=== PATIENT | female | born 1955 | race Caucasian/White ===

== ENCOUNTER 2023-01-10 13:01 | Emergency (ER) | payer OTHER, SELFPAY ==
[2023-01-10] VITALS (16 sets, daily range): BP systolic 110–150; BP diastolic 70–105; PULSE 73–107; RESP 11–29; TEMP 37.2; O2SAT 93–100; BMI 26.4
--- NOTE | 2023-01-10 13:17 | DI.RAD.S_ITS ---
PROCEDURE: XR CHEST 1V INDICATIONS: chest pain TECHNIQUE: One view of the chest was acquired. COMPARISON: None. FINDINGS: Surgical changes and devices: None. Lungs and pleura: Lungs are clear. No pleural effusions or pneumothorax. Mediastinum: Mediastinal contours appear normal. Heart size is normal. Bones and chest wall: No suspicious bony lesions. Overlying soft tissues appear unremarkable. Mild levoconvex curvature of the thoracic spine. IMPRESSION: No acute cardiopulmonary abnormality. Approved by: Balta Skinner M.D. on 01/10/2023 at 14:49
--- NOTE | 2023-01-10 13:17 | DI.RAD.S_ITS ---
PROCEDURE: XR SHOULDER LT MIN 2V INDICATIONS: headache, fall TECHNIQUE: 2 views of the shoulder were acquired. COMPARISON: None. FINDINGS: Bones: Generalized osteopenia. No acute fractures or dislocations. No suspicious bony lesions. Visualized ribs appear intact. Soft tissues: No suspicious soft tissue calcifications. IMPRESSION: No acute osseous abnormality. If clinical suspicion and/or symptoms persist, additional imaging with repeat plain films, or advanced imaging (e.g. CT, MRI) may be helpful for further assessment. Approved by: Balta Skinner M.D. on 01/10/2023 at 14:50
--- NOTE | 2023-01-10 13:17 | DI.CT.S_ITS ---
PROCEDURE: CT HEAD/BRAIN WO CON INDICATIONS: headache, fall TECHNIQUE: Noncontrast 4.5 mm thick angled axial sections acquired from the foramen magnum to the vertex, with coronal and sagittal reformats. For radiation dose reduction, the following was used: automated exposure control, adjustment of mA and/or kV according to patient size. COMPARISON: None. FINDINGS: Image quality: Excellent. CSF spaces: Basal cisterns are patent. No extra-axial fluid collections. The ventricles are symmetric in size and shape. Brain: No intracranial bleeds or masses. There is minimal cerebral volume loss for age, with resultant ventricular and sulcal prominence. There are minimal periventricular and deep white matter chronic small vessel ischemic changes. There is intracranial internal carotid artery atherosclerosis. Skull and face: Calvarium and visualized facial bones appear intact, without suspicious lesions. Sinuses: Visualized sinuses and mastoids are clear. IMPRESSION: No acute intracranial abnormality. Approved by: Balta Skinner M.D. on 01/10/2023 at 14:26
--- NOTE | 2023-01-10 13:24 | ED.FALL ---
HPI - Fall General Chief Complaint: Fall Stated Complaint: Headache, L arm pain after fall, LOC after fall Time Seen by Provider: 01/10/23 13:09 Mode of arrival: Family Vehicle History of Present Illness HPI Narrative: Patient is a 67-year-old female history of hypertension alcohol abuse but sober now for 7 months presents today after having an episode of confusion yesterday. She reports she woke up in her normal state of health she was having a normal day suddenly woke up on her couch. She reports that she had blurry vision but realized that her glasses will over by the computer she does not remember how she got from the computer to the couch without her glasses. She has chronic left shoulder pain however her shoulder is maybe more tender and she feels like her left arm is bit more weak. She previously had a broken left wrist and has difficulty with her left finger she had trouble buttoning her pants today which she normally does not. She denies any nausea vomiting or worsening headache. No chest pain palpitations or other symptoms Related Data Home Medications Medication Instructions Recorded Confirmed [SYNTHROID] Q DAY ##0 04/18/13 Allergies Allergy/AdvReac Type Severity Reaction Status Date / Time No Known Allergies Allergy Uncoded 01/10/23 13:17 Review of Systems Review of Systems ROS Unobtainable: All systems reviewed & are unremarkable except as noted in HPI and below Patient History Social History Smoking Status: Former smoker Smoking Status: Former smoker Substance Use Type: does not use Exam Initial Vital Signs Initial Vital Signs: Vital Signs Temperature 98.9 F 01/10/23 13:10 Pulse Rate 107 H 01/10/23 13:10 Respiratory Rate 16 01/10/23 13:10 Blood Pressure 144/84 H 01/10/23 13:10 Pulse Oximetry 98 01/10/23 13:10 Oxygen Delivery Method Room Air 01/10/23 13:10 GENERAL: Alert 67-year-old and in no acute distress. HEENT: Head atraumatic,EOMI, pupils reactive, face symmetric, moist mucous membranes CARDIOVASCULAR: Regular rate and rhythm without murmurs, rubs or gallops. RESPIRATORY: Breath sounds equal bilaterally, no wheezes rales or rhonchi. ABDOMEN: Soft, nontender. Normoactive bowel sounds all 4 quadrants. No guarding or rebound. EXTREMITIES: Normal range of motion, no clubbing or edema. Neurovascularly intact NEUROLOGICAL: Alert and oriented x4.Normal gait and speech. Cranial nerves II through XII grossly intact. Good [id number], good yril-gy-puvg, strength equal bilaterally, no dysarthria or aphasia, sensation in tact to soft touch bilaterally, no visual changes, no facial droop department head strength is slightly weaker in the left than the right, due to shoulder pain on the left unable to hold left arm SKIN: Warm, dry, no laceration, no petechiae, no rashes or lesions. Course Orders Ordered: Discontinued Medications Aspirin (Aspirin 81 Mg Chew Tab) 324 mg PO NOW ONE Stop: 01/10/23 13:18 Last Admin: 01/10/23 14:11 Dose: 324 mg Documented By: AT Vital Signs Vital signs: Vital Signs - 8 hr 01/10/23 13:10 01/10/23 13:14 01/10/23 13:15 Temperature 98.9 F Pulse Rate 107 H 96 H 95 H Respiratory Rate 16 16 17 Blood Pressure 144/84 H Pulse Oximetry 98 99 99 Oxygen Delivery Method Room Air 01/10/23 13:30 01/10/23 13:30 01/10/23 14:10 Temperature Pulse Rate 94 H 85 Respiratory Rate 18 11 L Blood Pressure 147/105 H Pulse Oximetry 100 96 Oxygen Delivery Method Room Air 01/10/23 14:10 01/10/23 14:15 01/10/23 14:30 Temperature Pulse Rate 90 Respiratory Rate 16 Blood Pressure 130/71 120/73 Pulse Oximetry 96 Oxygen Delivery Method 01/10/23 14:30 01/10/23 14:45 01/10/23 15:00 Temperature Pulse Rate 76 83 Respiratory Rate 20 22 Blood Pressure 126/71 Pulse Oximetry 99 93 Oxygen Delivery Method 01/10/23 15:00 01/10/23 15:15 01/10/23 15:30 Temperature Pulse Rate 86 82 Respiratory Rate 22 28 H Blood Pressure 110/70 Pulse Oximetry 97 98 Oxygen Delivery Method Room Air 01/10/23 15:30 01/10/23 15:45 01/10/23 16:24 Temperature Pulse Rate 81 80 74 Respiratory Rate 19 29 H 12 Blood Pressure Pulse Oximetry 98 98 99 Oxygen Delivery Method Room Air 01/10/23 16:24 01/10/23 16:30 01/10/23 16:30 Temperature Pulse Rate 78 Respiratory Rate 13 Blood Pressure 150/76 H 133/71 Pulse Oximetry 99 Oxygen Delivery Method Room Air 01/10/23 16:45 01/10/23 17:00 01/10/23 17:00 Temperature Pulse Rate 73 83 Respiratory Rate 21 24 Blood Pressure 136/75 Pulse Oximetry 97 99 Oxygen Delivery Method Room Air MDM - Fall Lab Data 01/10/23 13:23 01/10/23 13:23 Labs: Lab Results 01/10/23 01/10/23 01/10/23 Range/Units 13:23 13: 13:23 WBC 7.7 (4.5-11.0) X10^3/uL RBC 4.35 (4.0-5.2) X10^6/uL Hgb 13.7 (12.0-16.0) g/dL Hct 39.7 (36-46) % MCV 91.1 (80-100) fL MCH 31.5 (26-34) PG MCHC 34.6 (30-36) % RDW 12.8 (11.6-14.8) % Plt Count 228 (150-400) X10^3/uL Neut % (Auto) 73.0 (50-75) % Lymph % (Auto) 19.4 L (25-40) % [place] % (Auto) 6.0 (3-14) % Eos % (Auto) 0.6 L (2-4) % Baso % (Auto) 1.0 (0-2) % Neut # (Auto) 5600 (4225-5182) /uL Lymph # (Auto) 1500 (2440-6469) /uL Bradford # (Auto) 500 (0-900) /uL Eos # (Auto) 0 (0-450) /uL Baso # (Auto) 100 (0-100) /uL PT 12.6 (10.1-12.7) SECONDS INR 1.1 (0.9-1.3) APTT 28 (26-36) SECONDS Sodium 139 (137-145) mmol/L Potassium 3.8 (3.4-5.1) mmol/L Chloride 104 (98-107) mmol/L Carbon Dioxide 26 (22-32) mmol/L BUN 9 (7-17) mg/dL Creatinine 0.75 (0.52-1.04) mg/dL Estimated GFR > 60 (>60) mL/min BUN/Creatinine Ratio 12.0 (6-22) Glucose 143 H (80-110) mg/dL Calcium 9.1 (8.4-10.2) mg/dL Magnesium 2.2 (1.6-2.3) mg/dL Total Bilirubin 0.9 (0.2-1.3) mg/dL AST 22 (14-36) IU/L ALT 23 (<35) IU/L Alkaline Phosphatase 79 (38-126) U/L Total Creatine Kinase 291 H (30-135) U/L CK-MB (CK-2) 0.67 (<2.37) ng/mL CK-MB (CK-2) Rel Index 0.2 L (1.5-5.0) % Troponin I 0.015 (0.01-0.034) ng/mL Total Protein 6.9 (6.3-8.2) g/dL Albumin 4.0 (3.5-5.0) g/dL Globulin 2.9 (1.7-4.1) g/dL Albumin/Globulin Ratio 1.4 (1.0-2.8) Lipase 36 (23-300) U/L Salicylates (<20) mg/dL U Opiates 300ng/mL cut (Negative) Ur Oxycodone Screen (Negative) Urine Methadone Screen (Negative) Acetaminophen (10-30) ug/mL Ur Barbiturates Screen (Negative) U Tricyclic Antidepress (Negative) Ur Phencyclidine Scrn (Negative) Ur Amphetamines Screen (Negative) U Methamphetamines Scrn (Negative) Ur MDMA Scrn (Ecstasy) (Negative) U Benzodiazepines Scrn (Negative) Urine Cocaine Screen (Negative) U Marijuana (THC) Screen (Negative) Ethyl Alcohol ( - 10) mg/dL 01/10/23 01/10/23 Range/Units 13:23 14:08 WBC (4.5-11.0) X10^3/uL RBC (4.0-5.2) X10^6/uL Hgb (12.0-16.0) g/dL Hct (36-46) % MCV (80-100) fL MCH (26-34) PG MCHC (30-36) % RDW (11.6-14.8) % Plt Count (150-400) X10^3/uL Neut % (Auto) (50-75) % Lymph % (Auto) (25-40) % Bradford % (Auto) (3-14) % Eos % (Auto) (2-4) % Baso % (Auto) (0-2) % Neut # (Auto) (6565-8459) /uL Lymph # (Auto) (4527-0158) /uL Bradford # (Auto) (0-900) /uL Eos # (Auto) (0-450) /uL Baso # (Auto) (0-100) /uL PT (10.1-12.7) SECONDS INR (0.9-1.3) APTT (26-36) SECONDS Sodium (137-145) mmol/L Potassium (3.4-5.1) mmol/L Chloride (98-107) mmol/L Carbon Dioxide (22-32) mmol/L BUN (7-17) mg/dL Creatinine (0.52-1.04) mg/dL Estimated GFR (>60) mL/min BUN/Creatinine Ratio (6-22) Glucose (80-110) mg/dL Calcium (8.4-10.2) mg/dL Magnesium (1.6-2.3) mg/dL Total Bilirubin (0.2-1.3) mg/dL AST (14-36) IU/L ALT (<35) IU/L Alkaline Phosphatase (38-126) U/L Total Creatine Kinase (30-135) U/L CK-MB (CK-2) (<2.37) ng/mL CK-MB (CK-2) Rel Index (1.5-5.0) % Troponin I (0.01-0.034) ng/mL Total Protein (6.3-8.2) g/dL Albumin (3.5-5.0) g/dL Globulin (1.7-4.1) g/dL Albumin/Globulin Ratio (1.0-2.8) Lipase (23-300) U/L Salicylates < 1.0 (<20) mg/dL U Opiates 300ng/mL cut Negative (Negative) Ur Oxycodone Screen Negative (Negative) Urine Methadone Screen Negative (Negative) Acetaminophen < 10 (10-30) ug/mL Ur Barbiturates Screen Negative (Negative) U Tricyclic Antidepress Negative (Negative) Ur Phencyclidine Scrn Negative (Negative) Ur Amphetamines Screen Negative (Negative) U Methamphetamines Scrn Negative (Negative) Ur MDMA Scrn (Ecstasy) Negative (Negative) U Benzodiazepines Scrn Negative (Negative) Urine Cocaine Screen Negative (Negative) U Marijuana (THC) Screen Negative (Negative) Ethyl Alcohol < 10 ( - 10) mg/dL Imaging Data CT scan - head: Radiologist's Impression: PROCEDURE:? CT HEAD/BRAIN WO CON ? INDICATIONS:? headache, fall ? TECHNIQUE:? Noncontrast 4.5 mm thick angled axial sections acquired from the foramen magnum to the vertex, with coronal and sagittal reformats.? For radiation dose reduction, the following was used:? automated exposure control, adjustment of mA and/or kV according to patient size.? ? COMPARISON:? None. ? FINDINGS:? Image quality:? Excellent.? ? CSF spaces:? Basal cisterns are patent.? No extra-axial fluid collections.? The ventricles are symmetric in size and shape.? ? Brain:? No intracranial bleeds or masses.? There is minimal cerebral volume loss for age, with resultant ventricular and sulcal prominence.? There are minimal periventricular and deep white matter chronic small vessel ischemic changes.? There is intracranial internal carotid artery atherosclerosis.? ? Skull and face:? Calvarium and visualized facial bones appear intact, without suspicious lesions.? ? Sinuses:? Visualized sinuses and mastoids are clear.? ? IMPRESSION:? No acute intracranial abnormality. ? ? ? Approved by: Balta Skinner M.D. on 01/10/2023 at 14:26? CTA - brain/neck: Radiologist's Impression: PROCEDURE:? CT ANGIO HEAD AND NECK ? INDICATIONS:? left weakness yesterday ? TECHNIQUE:? After the administration of intravenous contrast, 1 mm thick sections acquired from the aortic arch through the [place] of [place].? Post-contrast 4.5 mm thick sections then re-acquired from the foramen magnum to the vertex.? 3-dimensional ocamscr-ggkjswmty-ffpcvlftum (MIP) and/or volume rendering reformats were acquired of the central intracranial vasculature and neck separately. For radiation dose reduction, the following was used:? automated exposure control, adjustment of mA and/or kV according to patient size.? ? COMPARISON:? None. ? FINDINGS:? Image quality:? Excellent.? ? BRAIN:? CSF spaces:? Ventricles are normal in size and shape.? Basal cisterns are patent.? No extra-axial fluid collections.? ? Brain:? No midline shift.? No acute intracranial hemorrhage or mass effect.? Baez-white matter interface appears intact.? ? Skull and face:? Calvarium and facial bones appear intact, without suspicious lesions.? Orbits appear normal.? ? Sinuses:? Sinuses and mastoids are clear.? ? HEAD CT ANGIOGRAPHY:? Anterior circulation:? Intracranial internal carotid arteries demonstrate mild atherosclerotic calcifications without significant stenosis.? The flow within the paired anterior cerebral arteries is normal and symmetric.? The flow within the middle cerebral arteries is normal and symmetric.? The anterior communicating artery is seen.? No aneurysms are seen.? ? Posterior circulation:? Visualized portions of the vertebral arteries demonstrate normal caliber, and join to form a normal appearing basilar artery.? Flow within the posterior cerebral arteries is normal and symmetric.? No aneurysms are seen.? ? NECK CT ANGIOGRAPHY:? Carotid system:? The great vessels demonstrate a conventional anatomy as they arise from the aortic arch.? The origins of the common carotid arteries appear patent.? The common carotid arteries demonstrate normal caliber and courses.? The bifurcation regions are both widely patent.? The internal carotid arteries demonstrate normal calibers and mildly tortuous courses.? ? Posterior circulation:? The origins of the vertebral arteries both appear widely patent.? The more superior extracranial portions of both vertebral arteries also demonstrate normal courses and calibers.? They join to form a normal appearing basilar artery.? ? Soft tissues:? Visualized neck soft tissues demonstrate no suspicious abnormalities.? ? Bones:? No suspicious bony lesions.? Moderate degenerative changes are seen in the spine. ? ? IMPRESSION:? No acute intracranial abnormality.? No hemodynamically significant arterial stenosis or occlusion in the major arteries of the head and neck. ? Any quantitative measurements of stenosis were performed using NASCET criteria.? Approved by: Balta Skinner M.D. on 01/10/2023 at 14:29? Chest x-ray: Radiologist's Impression: PROCEDURE:? XR CHEST 1V ? INDICATIONS:? chest pain ? TECHNIQUE:? One view of the chest was acquired.? ? COMPARISON:? None. ? FINDINGS:? ? Surgical changes and devices:? None.? ? Lungs and pleura:? Lungs are clear.? No pleural effusions or pneumothorax.? ? Mediastinum:? Mediastinal contours appear normal.? Heart size is normal.? ? Bones and chest wall:? No suspicious bony lesions.? Overlying soft tissues appear unremarkable.? Mild levoconvex curvature of the thoracic spine. ? IMPRESSION:? No acute cardiopulmonary abnormality. ? ? Approved by: Balta Skinner M.D. on 01/10/2023 at 14:49? Extremity x-ray #1: Radiologist's Impression: PROCEDURE:? XR SHOULDER LT MIN 2V ? INDICATIONS:? headache, fall ? TECHNIQUE:? 2 views of the shoulder were acquired.? ? COMPARISON:? None. ? FINDINGS:? ? Bones:? Generalized osteopenia.? No acute fractures or dislocations.? No suspicious bony lesions.? Visualized ribs appear intact.? ? Soft tissues:? No suspicious soft tissue calcifications.? ? IMPRESSION:? No acute osseous abnormality.? If clinical suspicion and/or symptoms persist, additional imaging with repeat plain films, or advanced imaging (e.g. CT, MRI) may be helpful for further assessment. ? ? ? Approved by: Balta Skinner M.D. on 01/10/2023 at 14:50? MR brain: Radiologist's Impression: PROCEDURE:? MR HEAD/BRAIN WO CON ? INDICATIONS:? confusion, left arm weakness ? TECHNIQUE:? Non-contrast axial T1 spin echo, axial T2 fast spin echo, sagittal and axial FLAIR, coronal T2 fast spin echo, axial gradient echo, axial diffusion and ADC through the brain.? ? COMPARISON:? [facility], CT, CT ANGIO HEAD AND NECK, 01/10/2023, 13:40.? [facility], CT, CT HEAD/BRAIN WO CON, 01/10/2023, 13:35. ? FINDINGS:? Image quality:? This examination is limited by involuntary motion artifact.? ? CSF spaces:? Ventricles appear symmetric in size and shape.? Basal cisterns are patent.? No extra-axial fluid collections.? ? Brain:? No intracranial bleeds or mass effects.? There is cerebral volume loss for age.? There are periventricular and deep white matter chronic small vessel ischemic changes.? Brainstem appears normal.? Diffusion-weighted images show no acute ischemic insults.? No chronic ischemic insults.? Normal intravascular flow voids are present.? ? Skull and face:? Calvarial bone marrow is normal in signal.? Orbits are normal.? ? Sinuses:? Sinuses and mastoids are clear.? ? ? IMPRESSION:? Motion limited study demonstrating no findings of acute or subacute infarction. ? ? Dictated by: Otis Hudson M.D. on 01/10/2023 at 15:37 ? ? ECG Data Interpretation: Normal sinus rhythm rate 89 DE interval 152 QRS [address] changes no T-wave inversions mild artifact noted MDM Narrative Medical decision making narrative: Patient is 67-year-old female history of alcohol abuse but has been sober for the past couple of months presenting today with an episode of confusion. And now is having increased difficulty with her left arm. His difficult to tell if she is having actual shoulder pain she is able to flex extend and bend her elbow and wrist but unable to get her actual shoulder up. She has no numbness tingling or weakness. Head CT CT angio are both negative for intracranial abnormality. Shoulder x-ray does not show any obvious abnormality either. Blood work is reassuring, no electrolyte abnormality no EMIGDIO glucose, I can not explain what happened yesterday possible seizure possible TIA MRI today is negative. I really think that her shoulder is shoulder issue it has been ongoing for awhile she is able to move lower part of her arm, which is not consistent with a CVA. No evidence of substance abuse today. Discharge Plan Departure Patient Disposition: Home Clinical Impression: Acute shoulder pain Instructions: DI for Shoulder Pain Activity Restrictions/Additional Instructions: *You have been diagnosed with shoulder pain *What to do: At this time I do not have any explanation for what happened to yesterday. You had full workup in the emergency department. No evidence of stroke today no sign of infection *Continue to take medications as directed Tylenol or Motrin as needed pain *Follow up with your primary care provider in 2-3 days or call [phone] *Return to ER if you should have increasing pain weakness confusion numbness tingling or any new, worsening or concerning symptoms Prescriptions: No Action [SYNTHROID] Q DAY Qty: 0 Stand Alone Forms: Patient Portal/API
[2023-01-10 13:32] LABS: Add Manual Diff / Slide Review NO; Basophils Absolute Auto 100 /uL (0-100); Eosinophils Absolute Auto 0 /uL (0-450); Eosinophils Percent Auto 0.6 % (2-4); Hematocrit 39.7 % (36-46); Hemoglobin 13.7 g/dL (12.0-16.0); Lymphocytes Absolute Auto 1500 /uL (1100-4500); Lymphocytes Percent Auto 19.4 % (25-40); Mean Corpuscular HGB Conc 34.6 % (30-36); Mean Corpuscular Hemoglobin 31.5 PG (26-34); Mean Corpuscular Volume 91.1 fL (80-100); Monocytes Absolute Auto 500 /uL (0-900); Neutrophils Absolute Auto 5600 /uL (1500-7000); Platelet Count 228 X10^3/uL (150-400); Red Blood Cell Count 4.35 X10^6/uL (4.0-5.2); Red Cell Distribution Width 12.8 % (11.6-14.8); White Blood Cell Count 7.7 X10^3/uL (4.5-11.0)
--- NOTE | 2023-01-10 13:35 | DI.CT.S_ITS ---
PROCEDURE: CT ANGIO HEAD AND NECK INDICATIONS: left weakness yesterday TECHNIQUE: After the administration of intravenous contrast, 1 mm thick sections acquired from the aortic arch through the [place] of [place]. Post-contrast 4.5 mm thick sections then re-acquired from the foramen magnum to the vertex. 3-dimensional kjvyamo-ffirpqcfi-nalezprgfx (MIP) and/or volume rendering reformats were acquired of the central intracranial vasculature and neck separately. For radiation dose reduction, the following was used: automated exposure control, adjustment of mA and/or kV according to patient size. COMPARISON: None. FINDINGS: Image quality: Excellent. BRAIN: CSF spaces: Ventricles are normal in size and shape. Basal cisterns are patent. No extra-axial fluid collections. Brain: No midline shift. No acute intracranial hemorrhage or mass effect. Baez-white matter interface appears intact. Skull and face: Calvarium and facial bones appear intact, without suspicious lesions. Orbits appear normal. Sinuses: Sinuses and mastoids are clear. HEAD CT ANGIOGRAPHY: Anterior circulation: Intracranial internal carotid arteries demonstrate mild atherosclerotic calcifications without significant stenosis. The flow within the paired anterior cerebral arteries is normal and symmetric. The flow within the middle cerebral arteries is normal and symmetric. The anterior communicating artery is seen. No aneurysms are seen. Posterior circulation: Visualized portions of the vertebral arteries demonstrate normal caliber, and join to form a normal appearing basilar artery. Flow within the posterior cerebral arteries is normal and symmetric. No aneurysms are seen. NECK CT ANGIOGRAPHY: Carotid system: The great vessels demonstrate a conventional anatomy as they arise from the aortic arch. The origins of the common carotid arteries appear patent. The common carotid arteries demonstrate normal caliber and courses. The bifurcation regions are both widely patent. The internal carotid arteries demonstrate normal calibers and mildly tortuous courses. Posterior circulation: The origins of the vertebral arteries both appear widely patent. The more superior extracranial portions of both vertebral arteries also demonstrate normal courses and calibers. They join to form a normal appearing basilar artery. Soft tissues: Visualized neck soft tissues demonstrate no suspicious abnormalities. Bones: No suspicious bony lesions. Moderate degenerative changes are seen in the spine. IMPRESSION: No acute intracranial abnormality. No hemodynamically significant arterial stenosis or occlusion in the major arteries of the head and neck. Any quantitative measurements of stenosis were performed using NASCET criteria. Approved by: Balta Skinner M.D. on 01/10/2023 at 14:29
[2023-01-10 13:37] LABS: INR 1.1 (0.9-1.3); Prothrombin Time 12.6 SECONDS (10.1-12.7)
[2023-01-10 13:40] LABS: PTT Partial Thromboplastin Tim 28 SECONDS (26-36)
[2023-01-10 13:46] LABS: Acetaminophen < 10 ug/mL (10-30); Alanine Aminotransferase 23 IU/L (<35); Albumin Globulin Ratio 1.4 (1.0-2.8); Alkaline Phosphatase 79 U/L (38-126); Aspartate Aminotransferase 22 IU/L (14-36); Bilirubin Total 0.9 mg/dL (0.2-1.3); Blood Urea Nitrogen 9 mg/dL (7-17); Calcium 9.1 mg/dL (8.4-10.2); Carbon Dioxide 26 mmol/L (22-32); Chloride 104 mmol/L (98-107); Creatine Kinase 291 U/L (30-135); Estimated Glomerular Filt Rate > 60 mL/min (>60); Ethanol (ETOH) < 10 mg/dL; Globulin 2.9 g/dL (1.7-4.1); Glucose 143 mg/dL (80-110); HEMOLYSIS < 15 (0-50); Lipase 36 U/L (23-300); Magnesium 2.2 mg/dL (1.6-2.3); Potassium 3.8 mmol/L (3.4-5.1); Salicylate < 1.0 mg/dL (<20); Sodium 139 mmol/L (137-145); Total Protein 6.9 g/dL (6.3-8.2)
[2023-01-10 13:56] LABS: Troponin I 0.015 ng/mL (0.01-0.034)
[2023-01-10 14:01] LABS: CKMB % Relative Index 0.2 % (1.5-5.0); Creatine Kinase MB 0.67 ng/mL (<2.37)
[2023-01-10] MEDS: ASPIRIN 81 MG CHEW TAB 324 MG PO (14:11)
[2023-01-10 14:16] LABS: UR Morphine/Opiate cutoff 300 Negative (Negative); Ur Creatinine Normal (Normal); Ur Specific Gravity Normal (Normal); Urine Amphetamines Negative (Negative); Urine Barbiturates Negative (Negative); Urine Benzodiazepines Negative (Negative); Urine Cocaine Negative (Negative); Urine MDMA Negative (Negative); Urine Methadone Negative (Negative); Urine Methamphetamines Negative (Negative); Urine Oxycodone Negative (Negative); Urine Phencyclidine Negative (Negative); Urine Tetrahydrocannabinol Negative (Negative); Urine Tricyclic Antidepressant Negative (Negative); Urine pH Normal (Normal)
--- NOTE | 2023-01-10 15:19 | DI.MRI.S_ITS ---
PROCEDURE: MR HEAD/BRAIN WO CON INDICATIONS: confusion, left arm weakness TECHNIQUE: Non-contrast axial T1 spin echo, axial T2 fast spin echo, sagittal and axial FLAIR, coronal T2 fast spin echo, axial gradient echo, axial diffusion and ADC through the brain. COMPARISON: [facility], CT, CT ANGIO HEAD AND NECK, 01/10/2023, 13:40. [facility], CT, CT HEAD/BRAIN WO CON, 01/10/2023, 13:35. FINDINGS: Image quality: This examination is limited by involuntary motion artifact. CSF spaces: Ventricles appear symmetric in size and shape. Basal cisterns are patent. No extra-axial fluid collections. Brain: No intracranial bleeds or mass effects. There is cerebral volume loss for age. There are periventricular and deep white matter chronic small vessel ischemic changes. Brainstem appears normal. Diffusion-weighted images show no acute ischemic insults. No chronic ischemic insults. Normal intravascular flow voids are present. Skull and face: Calvarial bone marrow is normal in signal. Orbits are normal. Sinuses: Sinuses and mastoids are clear. IMPRESSION: Motion limited study demonstrating no findings of acute or subacute infarction. Dictated by: Otis Hudson M.D. on 01/10/2023 at 15:37 Approved by: Otis Hudson M.D. on 01/10/2023 at 15:38
== END 2023-01-10 17:16 | disposition home or self-care (01) ==
PROVIDERS: Emergency Provider Emergency Medicine
DX: M25.512 Pain in left shoulder (principal); R41.0 Disorientation, unspecified; R07.9 Chest pain, unspecified; H53.8 Other visual disturbances; W19.XXXA Unspecified fall, initial encounter
CPT/HCPCS: 36415; 70450; 70496; 70498; 70551; 71045; 73030; 80053; 80305; 80320; 80329; 82550; 82553; 83690; 83735; 84484; 85025; 85610; 85730; 93005; 93010; 99284; 99285; G0480; Q9967

== ENCOUNTER 2023-10-03 22:08 | Emergency (ER) | payer OTHER, SELFPAY ==
[2023-10-03 22:11] VITALS: BP 146/105; PULSE 71; RESP 17; TEMP 37.1; O2SAT 99; BMI 26.9
[2023-10-03 22:46] VITALS: O2SAT 91
[2023-10-03 22:47] VITALS: BP 160/86; PULSE 67; O2SAT 99
[2023-10-03 22:57] LABS: Add Manual Diff / Slide Review NO; Basophils Absolute Auto 100 /uL (0-100); Basophils Percent Auto 0.6 % (0-2); Eosinophils Absolute Auto 100 /uL (0-450); Eosinophils Percent Auto 0.7 % (2-4); Hematocrit 41.9 % (36-46); Hemoglobin 14.3 g/dL (12.0-16.0); Lymphocytes Absolute Auto 1300 /uL (1100-4500); Lymphocytes Percent Auto 14.4 % (25-40); Mean Corpuscular HGB Conc 34.1 % (30-36); Mean Corpuscular Hemoglobin 31.3 PG (26-34); Mean Corpuscular Volume 91.9 fL (80-100); Monocytes Absolute Auto 400 /uL (0-900); Monocytes Percent Auto 4.8 % (3-14); Neutrophils Absolute Auto 7100 /uL (1500-7000); Neutrophils Percent Auto 79.5 % (50-75); Platelet Count 257 X10^3/uL (150-400); Red Blood Cell Count 4.56 X10^6/uL (4.0-5.2); Red Cell Distribution Width 12.7 % (11.6-14.8); White Blood Cell Count 8.9 X10^3/uL (4.5-11.0)
[2023-10-03 23:00] VITALS: BP 156/85; PULSE 67; O2SAT 99
[2023-10-03 23:04] LABS: Alanine Aminotransferase 19 IU/L (<35); Albumin Globulin Ratio 1.3 (1.0-2.8); Alkaline Phosphatase 95 U/L (38-126); Aspartate Aminotransferase 23 IU/L (14-36); BUN Creatinine Ratio 18.9 (6-22); Bilirubin Total 0.4 mg/dL (0.2-1.3); Blood Urea Nitrogen 14 mg/dL (7-17); Calcium 9.7 mg/dL (8.4-10.2); Carbon Dioxide 26 mmol/L (22-32); Chloride 101 mmol/L (98-107); Estimated Glomerular Filt Rate > 60 mL/min (>60); Glucose 146 mg/dL (80-110); HEMOLYSIS < 15 (0-50); Lipase 66 U/L (23-300); Potassium 4.1 mmol/L (3.4-5.1); Sodium 135 mmol/L (137-145)
[2023-10-03 23:30] VITALS: BP 175/81; PULSE 68; O2SAT 100
[2023-10-04] VITALS: BP 175/85; PULSE 68; O2SAT 100
--- NOTE | 2023-10-04 00:07 | ED.GENADULT ---
HPI - General Adult General Chief complaint: Abdominal Pain Stated complaint: discolored stool/ pain in abd/ t-3 Time Seen by Provider: 10/03/23 22:53 Source: patient Mode of arrival: Ambulatory History of Present Illness HPI narrative: 68-year-old woman with a history of alcohol use disorder who states she is no longer drinking presents with 3 days of very light colored stool and upper abdominal pain. No nausea vomiting or diarrhea. No fevers,cough, chills, palpitations or headaches. She states that her diet has been similar with no significant changes. Related Data Home Medications Medication Instructions Recorded Confirmed [SYNTHROID] Q DAY ##0 04/18/13 Previous Rx's Medication Instructions Recorded omeprazole 40 mg capsule,delayed 40 mg PO DAILY #30 caps 10/04/23 release Allergies Allergy/AdvReac Type Severity Reaction Status Date / Time No Known Drug Allergies Allergy Verified 10/03/23 22:11 Review of Systems Review of Systems Narrative: Pertinent positive and negative findings as per HPI Patient History Social History Smoking Status: Former smoker Smoking Status: Former smoker Substance Use Type: does not use Exam Initial Vital Signs Initial Vital Signs: Vital Signs Temperature 98.7 F 10/03/23 22:11 Pulse Rate 71 10/03/23 22:11 Respiratory Rate 17 10/03/23 22:11 Blood Pressure 146/105 H 10/03/23 22:11 Pulse Oximetry 99 10/03/23 22:11 Oxygen Delivery Method Room Air 10/03/23 22:11 General: Healthy appearing, in no acute distress. Able to give a complete and coherent history. HEENT: Moist mucous membranes, normal sclera with reactive pupils, Respiratory: Lungs are clear to auscultation, no wheezing no rales no rhonchi. Full and symmetrical air movement Cardiac: Regular rate and rhythm no murmurs no bruits Abdomen: Soft, tender across the entire upper abdomen without rebound or guarding, good bowel tones, no flank pain Skin: Warm and dry, no rashes, no jaundice Neurologic: Grossly neurologically intact with no obvious asymmetries or abnormalities Extremities: No trauma, well perfused Psych: Cooperative, appropriate insight and affect Course Orders Ordered: ED Orders 10/03/23 22:16 EKG-12 Lead Stat 10/03/23 22:40 Complete Blood Count AUTO DIFF Stat Comprehensive Metabolic Panel Stat Lipase Stat 10/04/23 00:11 CT abdomen pelvis w con Stat Hydromorphone HCl (Hydromorphone 0.5 Mg Inj) 0.5 mg IV Q15MIN PRN PRN Reason: Pain, Last Admin: 10/04/23 00:39 Dose: 0.5 mg Documented By: EVER Ondansetron HCl (Ondansetron 4 Mg Odt) 4 mg PO NOW PRN PRN Reason: Nausea And Vomiting Ondansetron HCl (Ondansetron 4 Mg/2 Ml Inj) 4 mg IV NOW PRN PRN Reason: Nausea And Vomiting Discontinued Medications Hydromorphone HCl (Hydromorphone 1 Mg Inj) 1 mg IV NOW ONE Stop: 10/04/23 01:27 Last Admin: 10/04/23 01:37 Dose: 1 mg Documented By: DIXON Sodium Chloride (Normal Saline 0.9%) 1,000 mls @ 1,000 mls/hr IV BOLUS ONE Stop: 10/04/23 01:10 Last Infusion: 10/04/23 01:37 Dose: Infused Documented By: Admin: 10/04/23 00:39 Dose: 1,000 mls/hr Documented By: EVER Vital Signs Vital signs: Vital Signs - 8 hr 10/03/23 22:11 10/03/23 22:46 10/03/23 22:47 Temperature 98.7 F Pulse Rate 71 Respiratory Rate 17 Blood Pressure 146/105 H 160/86 H Pulse Oximetry 99 91 Oxygen Delivery Method Room Air 10/03/23 22:47 10/03/23 23:00 10/03/23 23:00 Temperature Pulse Rate 67 67 Respiratory Rate Blood Pressure 156/85 H Pulse Oximetry 99 99 Oxygen Delivery Method 10/03/23 23:30 10/03/23 23:30 10/04/23 00:00 Temperature Pulse Rate 68 68 Respiratory Rate Blood Pressure 175/81 H Pulse Oximetry 100 100 Oxygen Delivery Method 10/04/23 00:00 10/04/23 00:33 10/04/23 00:37 Temperature Pulse Rate 101 H Respiratory Rate Blood Pressure 175/85 H 171/81 H Pulse Oximetry 95 Oxygen Delivery Method 10/04/23 00:37 10/04/23 01:00 10/04/23 01:00 Temperature Pulse Rate 76 71 Respiratory Rate 16 Blood Pressure 173/84 H Pulse Oximetry 99 98 Oxygen Delivery Method 10/04/23 01:30 10/04/23 01:30 10/04/23 02:00 Temperature Pulse Rate 72 73 Respiratory Rate Blood Pressure 172/78 H Pulse Oximetry 97 89 L Oxygen Delivery Method 10/04/23 02:00 Temperature Pulse Rate Respiratory Rate Blood Pressure 155/84 H Pulse Oximetry Oxygen Delivery Method Medical Decision Making Lab Data 10/03/23 22:40 10/03/23 22:40 Labs: Lab Results 10/03/23 Range/Units 22:40 WBC 8.9 (4.5-11.0) X10^3/uL RBC 4.56 (4.0-5.2) X10^6/uL Hgb 14.3 (12.0-16.0) g/dL Hct 41.9 (36-46) % MCV 91.9 (80-100) fL MCH 31.3 (26-34) PG MCHC 34.1 (30-36) % RDW 12.7 (11.6-14.8) % Plt Count 257 (150-400) X10^3/uL Neut % (Auto) 79.5 H (50-75) % Lymph % (Auto) 14.4 L (25-40) % [place] % (Auto) 4.8 (3-14) % Eos % (Auto) 0.7 L (2-4) % Baso % (Auto) 0.6 (0-2) % Neut # (Auto) 7100 H (8132-3089) /uL Lymph # (Auto) 1300 (1373-2832) /uL [place] # (Auto) 400 (0-900) /uL Eos # (Auto) 100 (0-450) /uL Baso # (Auto) 100 (0-100) /uL Sodium 135 L (137-145) mmol/L Potassium 4.1 (3.4-5.1) mmol/L Chloride 101 (98-107) mmol/L Carbon Dioxide 26 (22-32) mmol/L BUN 14 (7-17) mg/dL Creatinine 0.74 (0.52-1.04) mg/dL Estimated GFR > 60 (>60) mL/min BUN/Creatinine Ratio 18.9 (6-22) Glucose 146 H (80-110) mg/dL Calcium 9.7 (8.4-10.2) mg/dL Total Bilirubin 0.4 (0.2-1.3) mg/dL AST 23 (14-36) IU/L ALT 19 (<35) IU/L Alkaline Phosphatase 95 (38-126) U/L Total Protein 7.0 (6.3-8.2) g/dL Albumin 4.0 (3.5-5.0) g/dL Globulin 3.0 (1.7-4.1) g/dL Albumin/Globulin Ratio 1.3 (1.0-2.8) Lipase 66 (23-300) U/L Imaging Data CT scan - abdomen/pelvis: Radiologist's Impression: FINDINGS: Image quality: Excellent. Lung bases: Unremarkable. Heart: No significant findings. ABDOMEN: Liver: Unremarkable. Gallbladder: Unremarkable. Biliary ducts: Unremarkable. Pancreas: Unremarkable. Spleen: Unremarkable. Adrenal Glands: Unremarkable. Kidneys and Ureters: Unremarkable. Stomach and Bowel: Stomach, small bowel loops, and colon are unremarkable. Peritoneum: No abnormal intraperitoneal fluid. No free air. Ventral Wall: No hernias. Abdominal Nodes: No retroperitoneal or mesenteric adenopathy by size criteria. Vessels: Aorta and inferior vena cava are normal in size. PELVIS: Pelvic Organs: Unremarkable. Bladder: Unremarkable. Pelvic Nodes: No enlarged lymph nodes. Miscellaneous: No hernias are seen. Extensive sigmoid diverticulosis is present, and there is no identified area of Suzi diverticular abscess formation. Slight mural thickening is noted along the left lateral border of the sigmoid colon which could represent mild focal acute diverticulitis or scarring from prior diverticulitis. This is best seen on CT series 2, image 66. Bones: Unremarkable. IMPRESSION: Extensive sigmoid diverticulosis without definite acute diverticulitis but there is a focus of either scarring or minimal focal diverticulitis seen at the lateral border of the sigmoid colon. Dictated by: Braulio Boo M.D. on 10/04/2023 at 1:11 MDM Narrative Medical decision making narrative: CC: Upper abdominal pain with change to stool color Complicating co-morbidities: History of alcohol use disorder, states she is no longer drinking Data collected from: patient, partner Medical records reviewed: Prior ER notes dealing with acute shoulder pain. No other records are immediately available. Differential considered: Stone anatomic or neoplastic abnormality that is restricting normal bile outflow, bowel obstruction Exam documented above, pertinent findings include: Relatively unremarkable exam with moderate upper abdominal pain without rebound or guarding. No jaundice Lab Test results independently reviewed as above. Pertinent findings: CBC is unremarkable Chemistries are reassuring. Liver function studies are completely unremarkable with a normal bilirubin. Lipase is within normal limits, suggesting no pancreatitis Imaging studies independently reviewed: CT abdomen is reviewed no obvious abnormalities appreciated to explain her change in stool. Possible developing diverticulitis Treatments: Fluids, hydromorphone, Zofran, Protonix Discussion: 68-year-old woman presents with upper abdominal pain. Labs are reassuring. CT scan does not have any significant findings. The discussion on the CT scan questioning developing diverticulitis does not fit at all clinically. We discussed alternate explanations for why she might be having epigastric and upper abdominal pain. Suggested that she try a month of omeprazole to see if gastritis/developing gastric ulcer baby related to her pain. At this point there is certainly no life-threatening explanation, nothing that requires additional evaluation or hospitalization at this time. Recommended using Tylenol and avoiding ibuprofen or aspirin as this can further upset the gastric lining. Also recommended she follow up with her primary care doctor in suggested that if her pain is not resolving she may need referral to Gastroenterology and possible upper endoscopy. Questions are answered and she is safe for discharge Discharge Plan Departure Patient Disposition: Home Clinical Impression: Change in stool Abdominal pain Qualifiers: Abdominal location: upper abdomen, unspecified Qualified Code(s): R10.10 - Upper abdominal pain, unspecified Instructions: DI for Gastritis Activity Restrictions/Additional Instructions: Thank you for coming in today Your workup today was actually very reassuring. I do not have a full explanation for the pain that you are experiencing in your upper abdomen but I can tell you there is not a surgical emergency, your gallbladder, liver and pancreas all look healthy. I am not seeing any evidence of cancer or other infections in the upper part of your belly. I am going to suggest an acid reducing medication for a month. Sometimes this type of pain can be from the lining of your stomach. Using an acid reducing medication allows the lining of your stomach to repair itself. During this time I would recommend Tylenol as the only medication for pain control. Ibuprofen, alleve, Motrin, aspirin, Excedrin all have components that can further irritate the lining of your stomach. I would recommend that you follow-up with your primary care doctor. If you continue to have this pain the next step may be referral to a materials management manager and consideration of an upper endoscopy to look at the lining of your stomach. If you find that you are getting worse or develop any new symptoms, please feel free to return to the emergency department for further evaluation. Prescriptions: New omeprazole 40 mg capsule,delayed release(DR/EC) 40 mg PO DAILY Qty: 30 0RF No Action [SYNTHROID] Q DAY Qty: 0 Referrals: Bertha Bustamante PA-C [Primary Care Provider] - Stand Alone Forms: Patient Portal/API
--- NOTE | 2023-10-04 00:11 | DI.CT.S_ITS ---
PROCEDURE: CT ABDOMEN PELVIS W CON INDICATIONS: upper abdominal pain and pale stool TECHNIQUE: After the administration of intravenous contrast, axial sections acquired from the lung bases to the pubic symphysis. Coronal and sagittal reformats were performed. For radiation dose reduction, the following was used: automated exposure control, adjustment of mA and/or kV according to patient size. COMPARISON: None. FINDINGS: Image quality: Excellent. Lung bases: Unremarkable. Heart: No significant findings. ABDOMEN: Liver: Unremarkable. Gallbladder: Unremarkable. Biliary ducts: Unremarkable. Pancreas: Unremarkable. Spleen: Unremarkable. Adrenal Glands: Unremarkable. Kidneys and Ureters: Unremarkable. Stomach and Bowel: Stomach, small bowel loops, and colon are unremarkable. Peritoneum: No abnormal intraperitoneal fluid. No free air. Ventral Wall: No hernias. Abdominal Nodes: No retroperitoneal or mesenteric adenopathy by size criteria. Vessels: Aorta and inferior vena cava are normal in size. PELVIS: Pelvic Organs: Unremarkable. Bladder: Unremarkable. Pelvic Nodes: No enlarged lymph nodes. Miscellaneous: No hernias are seen. Extensive sigmoid diverticulosis is present, and there is no identified area of Suzi diverticular abscess formation. Slight mural thickening is noted along the left lateral border of the sigmoid colon which could represent mild focal acute diverticulitis or scarring from prior diverticulitis. This is best seen on CT series 2, image 66. Bones: Unremarkable. IMPRESSION: Extensive sigmoid diverticulosis without definite acute diverticulitis but there is a focus of either scarring or minimal focal diverticulitis seen at the lateral border of the sigmoid colon. Dictated by: Braulio Boo M.D. on 10/04/2023 at 1:11 Approved by: Braulio Boo M.D. on 10/04/2023 at 1:14
[2023-10-04 00:33] VITALS: PULSE 101; O2SAT 95
[2023-10-04 00:37] VITALS: BP 171/81; PULSE 76; O2SAT 99
[2023-10-04] MEDS: HYDROMORPHONE 0.5 MG INJ IV (00:39)
[2023-10-04] MEDS: SODIUM CHLORIDE 0.9% 1,000 ML 1000 ML IV (00:39)
[2023-10-04 01:00] VITALS: BP 173/84; PULSE 71; RESP 16; O2SAT 98
[2023-10-04 01:30] VITALS: BP 172/78; PULSE 72; O2SAT 97
[2023-10-04] MEDS: HYDROMORPHONE 1 MG INJ IV (01:37)
[2023-10-04 02:00] VITALS: BP 155/84; PULSE 73; O2SAT 89
[2023-10-04] MEDS: PANTOPRAZOLE 40 MG VIAL IV (02:41)
== END 2023-10-04 02:54 | disposition home or self-care (01) ==
PROVIDERS: Emergency Provider Emergency Medicine; PCP Physician Assistant
DX: R10.10 Upper abdominal pain, unspecified (principal); R19.5 Other fecal abnormalities
CPT/HCPCS: 36415; 74177; 80053; 83690; 85025; 93005; 93010; 96361; 96374; 96375; 96376; 99284; C9113; J1170; Q9967